=== PATIENT | male | born 1950 | race Caucasian/White ===

== ENCOUNTER 2019-01-13 17:23 | Emergency (ER) | payer OTHER ==
--- NOTE | 2019-01-13 17:27 | PDOC ---
History of Present Illness - General Stated Complaint: RIGHT JAW SWELLING/DENTAL PROBLEM Time Seen by Provider: 01/13/19 17:25 History Source: Patient Exam Limitations: No Limitations - History of Present Illness Initial Comments: 01/13/19 17:29 68 year old man with a history of tooth cavities that were supposed to be evaluated 1 month ago woke up 2 hours ago from a nap and found to have a swelling in the mouth Past History - Past Medical History Allergies/Adverse Reactions: Allergies Allergy/AdvReac Type Severity Reaction Status Date / Time No Known Allergies Allergy Verified 01/13/19 17:24 Home Medications: Ambulatory Orders Amoxicillin - [Amoxicillin 500mg Capsule -] 500 mg PO TID #21 capsule 01/13/19 *Physical Exam - Physical Exam Comments: 01/13/19 17:53 R sided cheek swelling with tenderness to palption and gum/tooth palpation no erythema, induration and warmth *DC/Admit/Observation/Transfer Diagnosis at time of Disposition: Dental abscess - Discharge Dispostion Disposition: HOME Condition at time of disposition: Stable Decision to Admit order: No - Referrals - Patient Instructions Printed Discharge Instructions: Tooth Abscess Additional Instructions: You were seen in the ED for complaints of R sided cheek swelling and tooth pain In the ED you were evaluated and treated with antibiotics. There does not appear to be an acute need for immediate hospitalization. You are advised to follow up with your Primary Care Physician within 1 week. You were given a prescription for oral antibiotics and are advised to take as indicated until you can see your dentist. Return to the ED immediately if you experience worsening swelling in the cheek, and jaw, difficulty swallowing or breathing, rash or fever. - Post Discharge Activity
[2019-01-13 17:30] VITALS: BP 154/87; PULSE 81; TEMP 98.8; BMI 23.7
[2019-01-13] MEDS ORDERED: AMPICILLIN SODIUM 250 MG VIAL IVPUSH ONE (17:49)
[2019-01-13] MEDS ORDERED: AMPICILLIN SODIUM 1 GM VIAL ONE (17:56)
--- NOTE | 2019-01-13 18:39 | PDOC ---
Attending Attestation - Resident Resident Name: Gail Hsu - ED Attending Attestation I have performed the following: I have examined & evaluated the patient, The case was reviewed & discussed with the resident, I agree w/resident's findings & plan, Exceptions are as noted - HPI HPI: 01/13/19 18:34 17-year-old female with atypical chest pain, intermittent, for about 1 week. No other associated symptoms. No related cardiac symptoms. No respiratory symptoms. Pain is left parasternal. No aggravating factors. It occurs both at rest and while walking. Previously healthy female with no known medical problems - Physicial Exam PE: 01/13/19 18:36 Physical exam is entirely normal. Specifically, respiratory, cardiac, and neurological systems without abnormalities. The patient does appear to be somewhat anxious and affect is somewhat flat. Upon questioning, she alludes to some minor anxiety and depressive symptoms. 01/13/19 18:38 EKG today is normal. Prior EKG and blood work within the last week at another emergency room were also reported as negative. - Medical Decision Making 01/13/19 18:37 Impression: Atypical chest pain, probably related to anxiety or stress, maybe some mild depression though there are no suicidal ideations or prior attempts at harming herself or others Plan: Relaxation techniques were discussed with the patient and her family. Exercise recommended, as well as deep breathing techniques, and meditation review. She has an appointment for follow-up with a warehouse administrative assistant and is scheduled for an echocardiogram. Her parents will make sure she follows up as directed. She is fully ambulatory and in no distress, appearing somewhat reassured upon discharge to follow-up as directed
--- NOTE | 2019-01-13 18:53 | PDOC ---
Attending Attestation - Resident Resident Name: Gail Hsu - ED Attending Attestation I have performed the following: I have examined & evaluated the patient, The case was reviewed & discussed with the resident, I agree w/resident's findings & plan, Exceptions are as noted - HPI HPI: 01/13/19 18:48 Patient noted swelling of his right lower jaw earlier today. He has known dental caries in this area but has not been able to see a dentist as yet. Intermittent toothache and tooth decay have been present in this area for several months. No other associated systemic symptoms including fever/chills, headache, sore throat, URI symptoms, cough, chest pain, shortness of breath, difficulty breathing or swallowing, drooling or stridor. 01/13/19 18:49 Rest medical history is entirely negative. The patient denies any serious medical or surgical illnesses in the past and takes no regular medication. 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 There is facial swelling over the midportion of the mandible. This is distant from the parotid gland. There is mild tenderness but no erythema warmth or induration. There is no gingival swelling or lesion. There is a decayed lower molar at the site. There are no anterior or posterior cervical nodes. There is no stridor or drooling, and mastication as well as swallowing is normal - Medical Decision Making 01/13/19 18:52 Assessment: Dental abscess, without complication at present Plan: Antibiotic, first dose intravenously, to cover mouth slava. Continue by mouth. Return to the ER of swelling worsens. Otherwise see dentist as soon as possible. Motrin for pain if necessary, but the pain up to now has been minor.
== END 2019-01-13 18:50 | disposition home or self-care (01) ==
LOC: FER 17:23
DX: K04.7 Periapical abscess without sinus (principal)
CPT/HCPCS: 96374; 99283-25